=== PATIENT | female | born 1935 | race Caucasian/White ===

== ENCOUNTER 2016-10-01 10:08 | Observation (INO) | payer MEDICARE ==
[2016-10-01] VITALS (9 sets, daily range): BP systolic 110–149; BP diastolic 59–82; PULSE 64–82; RESP 14–20; O2SAT 95–99
[~2016-10-01] VITALS: Ht 167.6 cm; Wt 109.6 kg
[~2016-10-01 10:08] MED LIST: AMLO5TAB2 PO; CHOL10008 PO; FURO-128 PO; KRIL1CAP PO; MAGN400T4 PO; NAPR220C16 PO; NITR0.4T SL; POTA20TA16 PO; SOTA80TA PO; TRIA10.8 NS; VIT1CAPS8 PO; WARF5TAB7 PO
[2016-10-01 10:37] LABS: BASOPHILS % (AUTO) 0.5 % (0-3); EOSINOPHILS % (AUTO) 3.8 % (0-5); MONOCYTES % (AUTO) 10.4 % (4-12); Mean Corpuscular Hemoglobin 28.7 pg (27.0-35.0); Mean Corpuscular Volume 85.7 fL (81-100); NEUTROPHILS % (AUTO) 67.6 % (40-74); Platelet Count 240 bil/L (150-400)
--- NOTE | 2016-10-01 11:06 | ED.REPORT ---
HPI-Chest Pain 40 and Over Date of Service Oct 01, 2016 ED Provider: Veto Saini MD Patient is an 81 year old female on Warfarin with a history of atrial fibrillation who presents to the ED via EMS complaining of chest pain that radiated to her neck and jaw. She describes her pain as a 7/10 that felt like "really bad indigestion". She was given Nitro en route by EMS. Her pain is mostly resolved upon examination. Associated symptoms include some SOB when she got up to use the restroom. She denies diaphoresis, nausea, or any other symptoms. Her last stress test was about 2 years ago. Nursing Notes Stated Complaint: CP Chief Complaint: Chest Pain Nursing Notes Reviewed: Yes (App [employer] not reconciled) Allergies: Coded Allergies: Cephalosporins (Verified Allergy, Severe, 10/01/16) Penicillins (Verified Allergy, Severe, 10/01/16) oxycodone (Verified Allergy, Severe, 10/01/16) Patient states oxycodone affects Afib rate. TAPE (Unverified Allergy, Mild, Rash, 10/01/16) rash, blisters latex (Verified Allergy, Unknown, 10/01/16) Scheduled ([PGX soluable fiber]) 1 TBS PO DAILY Jgnhe-J-Ihgoscbrkktju (Beano) 300 Unit Tab.rapdis 2 TABLET PO DAILYWD Amlodipine (Amlodipine) 5 Mg Tablet 5 MG PO HS Cholecalciferol (Vitamin D3) (Vitamin D3) 2,000 Unit Capsule 4,000 UNIT PO DAILY Furosemide (Lasix) 40 Mg Tablet 20 MG PO DAILY Krill/Om3/Dha/Epa/Om6/Lip/Astx (Krill Oil 1,000 mg Softgel) 1 Each Capsule 1 EACH PO DAILY Magnesium Oxide (Magnesium Oxide) 400 Mg Tablet 400 MG PO DAILY Multivitamin (Multi Vitamin Daily) 1 Each Tablet 1 EACH PO DAILY Omeprazole (Omeprazole) 20 Mg Tablet.dr 20 MG PO DAILY Potassium Chloride ER (Potassium Chloride ER) 10 Meq Tablet 10 MEQ PO DAILY TAKE WITH FOOD Sotalol HCl (Sotalol) 80 Mg Tablet 80 MG PO BID Vit C/Vit E/Lutein/Min/[place]-3 (Ocuvite Softgel) 1 Each Capsule 1 EACH PO DAILY Warfarin Sodium (Warfarin Sodium) 5 Mg Tablet 5 MG PO DIRECTED take 1 tab daily except for Friday Warfarin Sodium (Warfarin Sodium) 5 Mg Tablet 2.5 MG PO DIRECTED take 1/2 tab on Friday only Scheduled PRN Calcium Carbonate (Tums) 500 Mg Tab.chew 2 TABLET PO PRN PRN PRN For Dyspepsia or Heartburn Naproxen Sodium (Naproxen Sodium) 220 Mg Capsule 220 MG PO BID PRN PRN For Pain Nitroglycerin SL (Nitrostat) 0.4 Mg Tab.subl 0.4 MG SL Q5MIN PRN PRN For Chest Pain Triamcinolone Acetonide (Nasacort) 10.8 Ml [place] 10.8 ML NS PRN sinus congestion General Time Seen by MD: 11:00 Chief Complaint Chest pain Hx Obtained From: Patient Arrived By: Ambulance Sudden in Onset?: Yes Onset Occurred: 1 - 4 hours ago Past Medical History Past Medical History Hypothyroid Arthritis Breast CA T1b, N0, M0 infiltrating ductal carcinoma with no indication for chemotherapy followed by Dr. Goodwin Borderline diabetes one chart, no diabetes. Reports: Cancer (L breast ), GERD, Hypertension Reports: Atrial fibrillation, Atrial flutter, Diverticulitis Past Surgical History Bladder sling closure fem AV fistula Cardica Ablation x3, last in 08/2015 Mastectomy for breast CA March 2016 Reports: Appendectomy, Hysterectomy, Tonsillectomy Smoking History Former Smoker Social History Alcohol Use: Denies alcohol use Drug Use: Denies drug use Other Social History: Good social support Review of Systems Respiratory: Reports: Shortness of breath Cardiovascular: Reports: Chest pain GI: Denies: Nausea Musculoskeletal: Reports: Neck pain Skin: Denies Diaphoresis Complete sys rev & neg: except as marked. Physical Exam Initial Vital Signs Vital Signs (First) Date Time Temp Pulse Resp B/P Pulse Ox O2 Delivery O2 Flow Rate FiO2 10/01/16 10:17 36.8 71 16 149/81 96 Room Air 10/01/16 12:10 2 Initial VS: Reviewed, Vital signs normal Head / Eyes: Atraumatic, Normocephalic Neck: Full range of motion Skin: Warm, Dry Neurologic: Alert, Oriented, Nonfocal Psychiatric: Mood/affect normal, Behavior normal, Normal thought content General/Constitutional: Awake, Alert, Well appearing, Well developed Respiratory / Chest: No respiratory distress Cardiovascular: Heart rate NL, Regular rhythm, Heart sounds NL Abdomen: Atraumatic, Soft, Non-tender Interpretation & Diagnostics Lab Results Interpretation Result Diagram: 10/01/16 1032 10/01/16 1032 Test 10/01/16 10:32 10/01/16 14:43 White Blood Count 7.4th/mm3 (3.8-10.1) Red Blood Count 5.05mil/mm3 (3.90-5.20) Hemoglobin 14.5g/dL (12.0-15.6) Hematocrit 43.3% (35.0-46.0) Mean Corpuscular Volume 85.7fL (81-100) Mean Corpuscular Hemoglobin 28.7pg (27.0-35.0) Mean Corpuscular Hemoglobin Concent 33.5% (32.0-37.0) Red Cell Distribution Width 14.5% (12.3-15.4) Platelet Count 240bil/L (150-400) Neutrophils (%) (Auto) 67.6% (40-74) Lymphocytes (%) (Auto) 17.4% (14-46) Monocytes (%) (Auto) 10.4% (4-12) Eosinophils (%) (Auto) 3.8% (0-5) Basophils (%) (Auto) 0.5% (0-3) Prothrombin Time 25.5sec (8.1-12.5) Prothromb Time International Ratio 2.34ratio Sodium Level 139mEq/L (134-144) Potassium Level 3.9mEq/L (3.5-5.2) Chloride Level 98mEq/L (97-108) Carbon Dioxide Level 28mmol/L (18-29) Blood Urea Nitrogen 28mg/dL (8-27) Creatinine 0.69mg/dL (0.57-1.00) Estimat Glomerular Filtration Rate 117mL/min (>59) Glucose Level 103mg/dL (60-99) Calcium Level 9.4mg/dL (8.5-10.1) Magnesium Level 2.2mg/dL (1.6-2.6) Total Bilirubin 0.4mg/dL (0.0-1.2) Aspartate Amino Transf (AST/SGOT) 25U/L (0-50) Alanine Aminotransferase (ALT/SGPT) 24U/L (0-32) Alkaline Phosphatase 68U/L (25-165) Troponin T < 0.010ug/L (0.0-0.011) Total Protein 7.8g/dL (6.4-8.4) Albumin 4.5g/dL (3.4-5.0) Lab Results Interpretation: CBC normal CMP normal Troponin #1 negative INR therapeutic ECG Interpretation ECG Interpretation: Sinus rhythm rate 66 Time: 10:26 Interpreted by: ED physician X-Ray Chest Interpretation Chest Xray Interpretation: IMPRESSION: Tracheal deviation rightward due to a previously documented large left thyroid mass. No change lead time. Dictated by: Roderick Jara M.D. on 10/01/2016 at 11:11 Approved by: Roderick Jara M.D. on 10/01/2016 at 11:11 View: Portable, 1 view Interpretation / Wet Read by: Interpret - Radiologist Re-Eval/Medical Decision Med Decision/Clinical Course This is an 81-year-old female without known coronary artery disease-last stress test in 2009-oh with multiple risk factors, has chronic problems with atrial fibrillation and status post multiple ablations, has chronic pain chronic warfarin comes by 911 for an episode of chest discomfort. She reports she had an episode which kind characterizes really severe indigestion-but is different than her usual GERD, it radiated up into her neck/jaw was very severe. It really got her attention and called 911. EMS gave one nitroglycerin and nearly completely resolved the difference (down from a 7 to 0-1). No shortness of breath, no clear exertional component. She has a normal physical exam and appears well. No pleuritic discomfort. She was recently treated and is in remission for breast CA. She is not on chemotherapy. She has no prior history of DVT or PE. The patient did receive aspirin prior to arrival turns out. She had intermittent nitro paste applied. After a second nitroglycerin completely resolved the discomfort. INR is therapeutic. Her started on is negative. Patient is enough risk factors and features with multiple hours of chest discomfort of a high risk character that observation admission for serial enzymes as warranted. Usually slightly concerned about being admitted observation status, but discussed over matters with the FAMILY DEVELOPMENT EXTENSION SPECIALIST, and ultimately agreed to observation admission. Source of Hx: Old records Time of Eval: 12:11 Patient Status: Pain resolved Re-Evaluation/Progress Note: Recheck. Discussed desire for admission. Patient would like to talk to a social services manager prior to making a decision. Time of Eval: 13:25 Re-Evaluation/Progress Note: Patient agreed to admission. Time of Eval: 13:32 Re-Evaluation/Progress Note: Updated on plan for admission. Patient understands and agrees with plan. All questions addressed at this time. Consultation : Referral / Consult Name: Freddy Barraza MD Consulted With: Hospitalist Call Returned at: 14:01 Supervisor Metal Furniture Fabrication: Will see patient, Agrees with eval, Agrees with plan, Accepts admit Note: Discussed patient's case. Accepts admit. Differential Diagnosis: Positive: Chest pain, acute, Negative: Dysrhythmia, Gun shot wound chest, Pericarditis, Pneumothorax, Pulmonary edema, Pulmonary embolism Counseled Regarding: Diagnosis, Lab results, Need for admission Discharge & Departure Primary Impression: Chest pain Chest pain type: unspecified Qualified Code: R07.9 - Chest pain, unspecified Additional Impression: Anticoagulated on warfarin Disposition: ADMITTED TO HOSPITAL Referrals: Doug Oh MD (PCP) Scribe Attestation Portions of this note were transcribed by Pako Moreno. I, Dr. Saini personally performed the history, physical exam and medical decision-making; I reviewed and confirmed the accuracy of the information in the transcribed note. Signed by: Pako Moreno 10/01/16, 1410 copies to: Doug Oh MD, Matthew F MD Oct 01, 2016 11:06 PAKO MORENO Oct 01, 2016 11:30
[2016-10-01 11:11] LABS: Magnesium 2.2 mg/dL (1.6-2.6)
--- NOTE | 2016-10-01 11:13 | DRSVH ---
PROCEDURE: X-RAY CHEST ONE VIEW, PORTABLE ([id number]) INDICATIONS: chest pain TECHNIQUE: One view of the chest was acquired. COMPARISON: [facility], CR, XR CHEST 2VW, 09/09/2015, 7:54. [facility], US, US THYROI D, 02/27/2016, 9:56. [facility], CR, XR CHEST 2VW, 09/10/2015, 7:44. FINDINGS: Surgical changes and devices: None. Lungs and pleura: No pleural effusions or pneumothorax. Lungs are clear. Mediastinum: Mediastinal contours appear normal except for tracheal shift from left to right associa eneida with a previously documented large left thyroid mass(please refer to thyroid ultrasound 02/27/16). Heart size is normal. Bones and chest wall: No suspicious bony lesions. Overlying soft tissues appear unremarkable. IMPRESSION: Tracheal deviation rightward due to a previously documented large left thyroid mass. No exchange trouble shooter time. Dictated by: Roderick Jara M.D. on 10/01/2016 at 11:11 Approved by: Roderick Jara M.D. on 10/01/2016 at 11:11
[2016-10-01 11:16] LABS: TROPONIN T < 0.010 ug/L (0.0-0.011)
[2016-10-01 11:25] LABS: INR 2.34 ratio
[2016-10-01] MEDS ORDERED: MULT-1018 PO (11:46)
[2016-10-01] MEDS ORDERED: OMEP20TA86 PO (11:46)
[2016-10-01] MEDS ORDERED: [UNRECOGNIZED DRUG - OTHER] PO (11:46)
[2016-10-01] MEDS ORDERED: POTA10TA12 PO (11:46)
[2016-10-01] MEDS ORDERED: CHOL200047 PO (11:46)
[2016-10-01] MEDS ORDERED: CALC500T9 PO (11:46)
[2016-10-01] MEDS ORDERED: ALPH300T2 PO (11:46)
[2016-10-01] MEDS ORDERED: WARF5TAB7 PO (11:46)
[2016-10-01] MEDS ORDERED: Nitroglycerin 2% 1 Gm Ointment TOPICAL SCH (13:25)
[2016-10-01] MEDS ORDERED: Ondansetron 2 mg/mL 2 mL Inj IVPUSH PRN (14:25)
[2016-10-01] MEDS ORDERED: Polyethylene Glycol (PEG) 17 Gm Powder PO PRN (14:25)
[2016-10-01] MEDS ORDERED: SIME80TA53 PO (16:52)
[2016-10-01] MEDS ORDERED: KRIL1CAP12 PO (16:52)
[2016-10-01] MEDS ORDERED: TRIA10.8 NS (16:52)
[2016-10-01] MEDS ORDERED: VIT1CAPS8 PO (16:52)
--- NOTE | 2016-10-01 17:55 | PCM.HPMED ---
Subjective Date of Service Oct 01, 2016 Primary Provider: Admitting Physician: Freddy Barraza MD Primary Care Physician: Doug Oh MD Attending Physician: Freddy Barraza MD Admit Status: From the Emergency Department, 23-Hour Observation, Remote Telemetry Chief Complaint: Chest pain, this morning. Limited and resolved. History of Present Illness: This is an 81-year-old female who had chest pain this morning after exercising and eating breakfast. The pain happened at rest. This is a fullness in her epigastric region which then radiated all at the anterior chest to her neck. Some associated dyspnea but no nausea vomiting or diaphoresis. Some deaths peptic symptoms. This did not help. She has no history of CAD but does have PAF. She had a stress test 6 years ago said to be normal. Her regular doctor is Dr. Oh. No recent history of exertional chest pain or dyspnea on exertion. No recent rhinorrhea cough sore throat fevers or chills. No myalgias or arthralgias. She denies any left or right leg unilateral swelling. She has had chronic lower edema which likely relates to her amlodipine. No orthopnea. Nothing made this pain worse. She was given nitroglycerin which appeared to improve the pain. In the ED chest x-ray, EKG, and her partner were normal. Review of Systems: She denies headache visual changes or hearing loss. No recent diarrhea abdominal pain and blood per rectum hematuria or dysuria. She has had chronic arthritis. Also reviewed and otherwise negative except as noted in history of present illness. Allergies Coded Allergies: Cephalosporins (Verified Allergy, Severe, 10/01/16) Penicillins (Verified Allergy, Severe, 10/01/16) oxycodone (Verified Allergy, Severe, 10/01/16) Patient states oxycodone affects Afib rate. TAPE (Unverified Allergy, Mild, Rash, 10/01/16) rash, blisters latex (Verified Allergy, Unknown, 10/01/16) Home Medications [PGX soluable fiber]) 1 TBS PO DAILY Yccha-R-Cmocrgayhfpov (Beano) 300 Unit Tab.rapdis 2 TABLET PO DAILYWD Amlodipine (Amlodipine) 5 Mg Tablet 5 MG PO HS Cholecalciferol (Vitamin D3) (Vitamin D3) 2,000 Unit Capsule 4,000 UNIT PO DAILY Furosemide (Lasix) 40 Mg Tablet 20 MG PO DAILY Krill/Om3/Dha/Epa/Om6/Lip/Astx (Krill Oil 1,000 mg Softgel) 1 Each Capsule 1 EACH PO DAILY Magnesium Oxide (Magnesium Oxide) 400 Mg Tablet 400 MG PO DAILY Multivitamin (Multi Vitamin Daily) 1 Each Tablet 1 EACH PO DAILY Omeprazole (Omeprazole) 20 Mg Tablet.dr 20 MG PO DAILY Potassium Chloride ER (Potassium Chloride ER) 10 Meq Tablet 10 MEQ PO DAILY TAKE WITH FOOD Sotalol HCl (Sotalol) 80 Mg Tablet 80 MG PO BID Vit C/Vit E/Lutein/Min/[place]-3 (Ocuvite Softgel) 1 Each Capsule 1 EACH PO DAILY Warfarin Sodium (Warfarin Sodium) 5 Mg Tablet 5 MG PO DIRECTED take 1 tab daily except for Friday Warfarin Sodium (Warfarin Sodium) 5 Mg Tablet 2.5 MG PO DIRECTED take 1/2 tab on Friday only Scheduled PRN Calcium Carbonate (Tums) 500 Mg Tab.chew 2 TABLET PO PRN PRN PRN For Dyspepsia or Heartburn Naproxen Sodium (Naproxen Sodium) 220 Mg Capsule 220 MG PO BID PRN PRN For Pain Nitroglycerin SL (Nitrostat) 0.4 Mg Tab.subl 0.4 MG SL Q5MIN PRN PRN For Chest Pain Triamcinolone Acetonide (Nasacort) 10.8 Ml [place] 10.8 ML NS PRN sinus congestion PMH Hypothyroid Arthritis Breast CA T1b, N0, M0 infiltrating ductal carcinoma with no indication for chemotherapy followed by Dr. Goodwin Borderline diabetes one chart, no diabetes. Reports: Cancer (L breast ), GERD, Hypertension Reports: Atrial fibrillation, Atrial flutter, Diverticulitis Surgical History Bladder sling closure fem AV fistula Cardica Ablation x3, last in 08/2015 Mastectomy for breast CA March 2016 Reports: Appendectomy, Hysterectomy, Tonsillectomy Family History Negative for CAD Social History Occupation: retired Hx Alcohol Use: No Hx Substance Use: No Hx Tobacco Use: Yes Smoking Status: Former Smoker Living Arrangement: Alone Exam Vital Signs Vital Sign - Last Date Time Temp Pulse Resp B/P Pulse Ox O2 Delivery O2 Flow Rate FiO2 10/01/16 16:36 72 10/01/16 16:20 36.8 20 116/82 96 Room Air 10/01/16 13:10 2 Exam Oriented 3, no distress. Fluent speech Normal skull Normal nose and ears Anicteric sclerae, symmetric pupils. Oropharynx no droop otherwise unremarkable unremarkable Neck supple, normal thyroid, no adenopathy. Lungs are clear, normal effort and rate Heart is irregular without murmur. Abdomen soft nondistended. Extremities no 1+ edema bilaterally with good pedal and radial pulses. Skin free of rash, lesions or ecchymosis Normal strength Normal affect. Joints not swollen or deformed. Lab and Diagnostics Labs neg trop Result Diagram: 10/01/16 1032 10/01/16 1032 X-Rays, CTs and MRIs Neg CXR 12-lead ECG ECG normal Assessment & Plan 1. Chest pain, transient. Improved with nitroglycerin. Prior to arrival. Plan is serial troponins and a pharmacologic may be stress test tomorrow. 2. Paroxysmal atrial fibrillation, POA. She is in A. fib now. He is right controlled. We will add metoprolol 12.5 by mouth twice a day when necessary tachycardia. No other changes to medications. 3. Hypertension, essential. POA. Usual medications. Patient is full resuscitation, confirmed tonight. She is admitted observation status with an estimated length of stay of one night. Pain Evaluation: Adequate Pain Control Resuscitation Status: CPR: Attempt Resuscitation Time spent 35 minutes Freddy Barraza MD Oct 01, 2016 17:55
--- NOTE | 2016-10-01 20:15 | NUR ---
admit patient received to room 246-2 at 1550. patient oriented to room and call light and states understanding. scd's placed. tele placed and patient in afib in the 60's per telecom coordinator report. Dr. Gomez here and notified that patient ekg in the ED was sinus rhythm and patient now in afib. additionally clarified order for nitro paste from ED and Dr. Barraza ordered not to give nitro paste order for ED. patient denies chest pain all shift. to be npo after midnight. blood pressure being done on right arm only. report given to oncoming rn at 1900.
[2016-10-01] MEDS ORDERED: Nitroglycerin 2% 1 Gm Ointment TOPICAL ONE (21:55)
[2016-10-02] VITALS (7 sets, daily range): BP systolic 129–158; BP diastolic 69–81; PULSE 63–90; RESP 16–20; O2SAT 94–96
--- NOTE | 2016-10-02 06:30 | NUR ---
Activity Pt did not have any chest pain or SOB during shift.
[2016-10-02] MEDS: Pantoprazole 40 mg ER24 Tablet PO SCH (09:12)
--- NOTE | 2016-10-02 10:30 | NUR ---
Case management: OBS brochure and Drugs administered in Hosp OP Settings information given and explained to patient at bedside at 1015. Questions answered. ADAM Babb RN
--- NOTE | 2016-10-02 11:56 | NUR ---
Social Work: Initial Assessment / Readiness for d/c Data: Pt is an 81 y/o female admitted for CP R/O ACS. Pt's PCP is Dr Oh, pt's insurance is Medicare with [employer]. EMR reviewed, pt discussed in rounds. MD states pt likely to d/c home today after stress test this afternoon pending the stress test results. COSMETICS SUPERVISOR spoke with pt at bedside, role explained. Pt states that she lives alone in a home with 2 steps to enter. She uses no DME. Pt staes that she drives, has history with [facility], no SNF history, no LTC or VA benefits, and is not a caregiver for another. Pt states that her daughter plans to pick her up today if needed or at a later time. No further d/c planning needs anticipated at this time. COSMETICS SUPERVISOR will continue to follow if needs arise. Assessment: Pt who is independent at baseline. Plan: Pt will d/c home via POV with daughter when medically stable, likely today. No further d/c planning needs anticipated at this time. COSMETICS SUPERVISOR will continue to follow if needs arise. MAHNAZ East Addendum: 10/02/16 at 1159 by BISMARK CHAPPELL Amended: Links added.
--- NOTE | 2016-10-02 16:46 | NUR ---
Off Floor Patient off floor to stress test at 1540 via wheelchair. Tele removed, telegraph repeater technician notified. Addendum: 10/02/16 at 1728 by DARWIN HUNT RN pt returned to floor at 1710. tele placed and ekg monitor tech notified.
--- NOTE | 2016-10-02 17:16 | PCM.PNMED ---
Subjective Date of Service Oct 02, 2016 Subjective Patient seen and examined, patients chest pain has diminished incredibly throughout the entire night. Patient is completely asympomatic at the current time. currently awaiting the results of the stress test. Exam Vital Signs Vital Sign - Last Date Time Temp Pulse Resp B/P Pulse Ox O2 Delivery O2 Flow Rate FiO2 10/02/16 13:06 36.7 69 17 144/69 95 Room Air 10/01/16 13:10 2 Exam General: Generally well appearing HEENT: sclerae anicteric, oral mucosa moist Neck: no apparent JVD Chest: clear to auscultation Cardiac: S1S2, no murmur Abdomen: BS active, non-tender, not bloated or tympanitic Extremities: No edema Neuro: A&O, cranial nerves symmetric, motor strength and coordination normal Lab and Diagnostics Result Diagram: 10/01/16 1032 10/01/16 1032 X-Rays, CTs and MRIs Neg CXR 12-lead ECG ECG normal Assessment & Plan 1. Chest pain, transient. Improved with nitroglycerin. Prior to arrival. - troponins have been negative will stop serial drawa - pt has gone to the stress test, will follow up on results 2. Paroxysmal atrial fibrillation, POA. She is in A. fib now. He is right controlled. We will add metoprolol 12.5 by mouth twice a day when necessary tachycardia. No other changes to medications. - pt currently still in atrial fibrillation - pt currently rate controlled and will go ahead with current regimen 3. Hypertension, essential. POA. Usual medications. Patient is full resuscitation, confirmed tonight. She is admitted observation status with an estimated length of stay of one night. VTE Mechanical Devices: Intermittant Pneumatic CD Resuscitation Status: CPR: Attempt Resuscitation Hernesto Morel MD Oct 02, 2016 17:16
[2016-10-03 04:10] VITALS: BP 125/74; PULSE 60; RESP 18; O2SAT 94
[2016-10-03 04:33] VITALS: PULSE 58
--- NOTE | 2016-10-03 05:53 | NUR ---
Pain / Tele Pt c/o right arm pain r/t several failed IV starts for Stress test yesterday, rating it 4/10. Right arm elevated on pillow, and hot packs applied, and pain resolved with no further c/o pain. Pt compliant with NPO status for scheduled Stress test procedure this AM . No c/o chest pain, Tele Afib with occ PVCs, HR 60-90s. VS stable and afebrile. Addendum: 10/03/16 at 0641 by CHANO LAMB RN Pt converted to Tele SB-SR around 0639 this AM with HR in the 50-60's per Associate Research Scientist.
[2016-10-03 07:54] VITALS: PULSE 73
[2016-10-03] MEDS: Pantoprazole 40 mg ER24 Tablet PO SCH (08:22)
[2016-10-03 08:55] VITALS: BP 134/83; PULSE 70; RESP 18; O2SAT 96
--- NOTE | 2016-10-03 10:30 | NUR ---
Stress test Day 2 patient is alert and oriented X3. able to make needs known. denies pain or discomfort. patient went for stress test day 2 this AM. stable vital signs. received all PO medications with out difficulty. independent with transfers. IV saline locked. continue to monitor.
[2016-10-03 12:33] VITALS: BP 128/80; PULSE 66; RESP 18; O2SAT 97
--- NOTE | 2016-10-03 12:57 | DRSVH ---
PROCEDURE: 2 DAY STRESS TEST Rest and pharmacological stress myocardial perfusion SPECT with gated imaging and ejection fraction RADIOPHARMACEUTICAL: 22.7 mCi Tc-99m tetrafosmin IV at rest and 21.9 mCi Tc-99m tetrafosmin IV at pea k effect of pharmacological stress. [id number] was performed. INDICATIONS: CHEST PAIN. TECHNIQUE: Radiopharmaceutical was injected at peak stress test, and also at rest. SPECT images wer e obtained. SPECT myocardial perfusion images were displayed in short axis, horizontal long axis, an d vertical long axis views. Gated images were reviewed using [employer] software. COMPARISON: None. CARDIAC STRESS: A pharmacologic stress test was performed under the supervision of an attending staff, using an infus ion of Regadenoson. Hemodynamic data: There is normal blood pressure and heart rate response to pharmacologic stress. Symptoms: The patient denied anginal chest pain. Aminophylline: 100 mg IV EKG: No diagnostic changes of ischemia; no ectopy. FINDINGS: Raw data: There is good myocardial uptake of radiotracer. No significant motion artifacts. Left ventricle function: Gated images demonstrate normal left ventricular wall thickening. No segme ntal wall motion abnormalities during rest. Left ventricle resting end diastolic volume is 59 mL. L eft ventricle rest ejection fraction is 82%; normal range is above 45%. Myocardial perfusion: There is a large perfusion defect noted on both stress and rest images. Howeve r on prone imaging the perfusion defect improves dramatically. IMPRESSION: This is most likely a normal myocardial perfusion study. The inferior perfusion defect is consistent with diaphragmatic attenuation artifact. Rest ejection fraction is normal. Overall this i s considered to be a low risk study. Dictated by: Kody Quinn Jr., M.D. on 10/03/2016 at 12:54 Approved by: Kody Quinn Jr., M.D. on 10/03/2016 at 12:54
--- NOTE | 2016-10-03 14:36 | PCM.DIMED ---
Discharge Instructions Date of Service Oct 03, 2016 Dates of Hospitalization Oct 01, 2016 at 15:25 Discharge Diagnosis Discharge Diagnosis take medications as prescribed follow up with your primary care doctor as needed Medication Instructions none Test Results [id number] Patient Name: MARILYN POWELL MR#: [id number] Location: [facility] [place] Ordering Phys: ASHANTI ASHBY MD Date of Service: 10/01/16 1028 PROCEDURE: X-RAY CHEST ONE VIEW, PORTABLE ([id number]) INDICATIONS: chest pain TECHNIQUE: One view of the chest was acquired. COMPARISON: [facility], CR, XR CHEST 2VW, 09/09/2015, 7:54. Outside Film, US, US THYROID, 02/27/2016, 9:56. [facility], CR, XR CHEST 2VW, 09/10/2015, 7:44. FINDINGS: Surgical changes and devices: None. Lungs and pleura: No pleural effusions or pneumothorax. Lungs are clear. Mediastinum: Mediastinal contours appear normal except for tracheal shift from left to right associated with a previously documented large left thyroid mass( please refer to thyroid ultrasound 02/27/16). Heart size is normal. Bones and chest wall: No suspicious bony lesions. Overlying soft tissues appear unremarkable. IMPRESSION: Tracheal deviation rightward due to a previously documented large left thyroid mass. [place] [address] Patient Name: MARILYN POWELL MR#: [id number] Location: [facility] [place] Ordering Phys: Hernesto Morel MD Date of Service: 10/02/16 0917 PROCEDURE: 2 DAY STRESS TEST Rest and pharmacological stress myocardial perfusion SPECT with gated imaging and ejection fraction RADIOPHARMACEUTICAL: 22.7 mCi Tc-99m tetrafosmin IV at rest and 21.9 mCi Tc-99m tetrafosmin IV at peak effect of pharmacological stress. Ibe-cip-skhxxhfj was performed. INDICATIONS: CHEST PAIN. TECHNIQUE: Radiopharmaceutical was injected at peak stress test, and also at rest. SPECT images were obtained. SPECT myocardial perfusion images were displayed in short axis, horizontal long axis, and vertical long axis views. Gated images were reviewed using AutoQUANT software. COMPARISON: None. CARDIAC STRESS: A pharmacologic stress test was performed under the supervision of an attending staff, using an infusion of Regadenoson. Hemodynamic data: There is normal blood pressure and heart rate response to pharmacologic stress. Symptoms: The patient denied anginal chest pain. Aminophylline: 100 mg IV EKG: No diagnostic changes of ischemia; no ectopy. FINDINGS: Raw data: There is good myocardial uptake of radiotracer. No significant motion artifacts. Left ventricle function: Gated images demonstrate normal left ventricular wall thickening. No segmental wall motion abnormalities during rest. Left ventricle resting end diastolic volume is 59 mL. Left ventricle rest ejection fraction is 82%; normal range is above 45%. Myocardial perfusion: There is a large perfusion defect noted on both stress and rest images. However on prone imaging the perfusion defect improves dramatically. IMPRESSION: This is most likely a normal myocardial perfusion study. The inferior perfusion defect is consistent with diaphragmatic attenuation artifact. Rest ejection fraction is normal. Overall this is considered to be a low risk study. Diet Low fat, Low Sodium Activity No restrictions Call your provider Fever or Chills, Shortness of breath, Chest pain Patient Instructions take medications as prescribed follow up with your pmd at your next scheduled visit Follow-up with PCP in: Other (as needed ) Hernesto Morel MD Oct 03, 2016 14:36
--- NOTE | 2016-10-03 15:32 | NUR ---
Discharge Patient discharged home approx 1324 with family and accompanied with nursing staff via wheel chair. patient is alert and oriented X3. Denied pain or discomfort. Denies chest pain or chest discomfort. Reviewed discharge instructions, discharge medications, and provided written care noted to patient and understood discharge paper work. Discontinued IV to left arm.
--- NOTE | 2016-10-22 14:26 | PCM.DC.MED ---
Discharge Summary Date of Service Oct 22, 2016 Dates of Hospitalization Date of Hospital Admission Oct 01, 2016 at 15:25 Date of Discharge: Oct 02, 2016 Providers: Admitting Physician: Freddy Barraza MD Primary Care Physician: Doug Oh MD Attending Physician: Freddy Barraza MD Diagnosis at Time of Discharge Diagnosis at Time of Discharge take medications as prescribed follow up with your primary care doctor as needed Procedures XRay, CTs & MRIs Neg CXR ECG 12 Lead ECG normal Other Diagnostics Patient Name: MARILYN POWELL MR#: [id number] Location: [facility] [place] Ordering Phys: Hernesto Morel MD Date of Service: 10/02/16 0917 PROCEDURE: 2 DAY STRESS TEST Rest and pharmacological stress myocardial perfusion SPECT with gated imaging and ejection fraction RADIOPHARMACEUTICAL: 22.7 mCi Tc-99m tetrafosmin IV at rest and 21.9 mCi Tc-99m tetrafosmin IV at peak effect of pharmacological stress. Qgt-mob-gnwmbglp was performed. INDICATIONS: CHEST PAIN. TECHNIQUE: Radiopharmaceutical was injected at peak stress test, and also at rest. SPECT images were obtained. SPECT myocardial perfusion images were displayed in short axis, horizontal long axis, and vertical long axis views. Gated images were reviewed using NetadminQUANT software. COMPARISON: None. CARDIAC STRESS: A pharmacologic stress test was performed under the supervision of an attending staff, using an infusion of Regadenoson. Hemodynamic data: There is normal blood pressure and heart rate response to pharmacologic stress. Symptoms: The patient denied anginal chest pain. Aminophylline: 100 mg IV EKG: No diagnostic changes of ischemia; no ectopy. FINDINGS: Raw data: There is good myocardial uptake of radiotracer. No significant motion artifacts. Left ventricle function: Gated images demonstrate normal left ventricular wall thickening. No segmental wall motion abnormalities during rest. Left ventricle resting end diastolic volume is 59 mL. Left ventricle rest ejection fraction is 82%; normal range is above 45%. Myocardial perfusion: There is a large perfusion defect noted on both stress and rest images. However on prone imaging the perfusion defect improves dramatically. IMPRESSION: This is most likely a normal myocardial perfusion study. The inferior perfusion defect is consistent with diaphragmatic attenuation artifact. Rest ejection fraction is normal. Overall this is considered to be a low risk study. Brief History This is an 81-year-old female who had chest pain this morning after exercising and eating breakfast. The pain happened at rest. This is a fullness in her epigastric region which then radiated all at the anterior chest to her neck. Some associated dyspnea but no nausea vomiting or diaphoresis. Some deaths peptic symptoms. This did not help. She has no history of CAD but does have PAF. She had a stress test 6 years ago said to be normal. Her regular doctor is Dr. Oh. No recent history of exertional chest pain or dyspnea on exertion. No recent rhinorrhea cough sore throat fevers or chills. No myalgias or arthralgias. She denies any left or right leg unilateral swelling. She has had chronic lower edema which likely relates to her amlodipine. No orthopnea. Nothing made this pain worse. She was given nitroglycerin which appeared to improve the pain. In the ED chest x-ray, EKG, and her partner were normal. Hospital Course 1. Chest pain, transient. Improved with nitroglycerin. Prior to arrival. - troponins have been negative will stop serial drawa - pt had stress test which did not reveal any perfusion defect 2. Paroxysmal atrial fibrillation, POA. She is in A. fib now. He is right controlled. We will add metoprolol 12.5 by mouth twice a day when necessary tachycardia. No other changes to medications. - pt currently still in atrial fibrillation - pt currently rate controlled and will go ahead with current regimen 3. Hypertension, essential. POA. Usual medications. Patient is full resuscitation Pt will be discharged to home, she will follow up with her pmd within two weeks Pt will take medications as described in discharge instructions Exam Test 10/01/16 10:32 10/01/16 14:43 10/01/16 19:40 White Blood Count 7.4th/mm3 (3.8-10.1) Red Blood Count 5.05mil/mm3 (3.90-5.20) Hemoglobin 14.5g/dL (12.0-15.6) Hematocrit 43.3% (35.0-46.0) Mean Corpuscular Volume 85.7fL (81-100) Mean Corpuscular Hemoglobin 28.7pg (27.0-35.0) Mean Corpuscular Hemoglobin Concent 33.5% (32.0-37.0) Red Cell Distribution Width 14.5% (12.3-15.4) Platelet Count 240bil/L (150-400) Neutrophils (%) (Auto) 67.6% (40-74) Lymphocytes (%) (Auto) 17.4% (14-46) Monocytes (%) (Auto) 10.4% (4-12) Eosinophils (%) (Auto) 3.8% (0-5) Basophils (%) (Auto) 0.5% (0-3) Prothrombin Time 25.5sec (8.1-12.5) Prothromb Time International Ratio 2.34ratio Sodium Level 139mEq/L (134-144) Potassium Level 3.9mEq/L (3.5-5.2) Chloride Level 98mEq/L (97-108) Carbon Dioxide Level 28mmol/L (18-29) Blood Urea Nitrogen 28mg/dL (8-27) Creatinine 0.69mg/dL (0.57-1.00) Estimat Glomerular Filtration Rate 117mL/min (>59) Glucose Level 103mg/dL (60-99) Calcium Level 9.4mg/dL (8.5-10.1) Magnesium Level 2.2mg/dL (1.6-2.6) Total Bilirubin 0.4mg/dL (0.0-1.2) Aspartate Amino Transf (AST/SGOT) 25U/L (0-50) Alanine Aminotransferase (ALT/SGPT) 24U/L (0-32) Alkaline Phosphatase 68U/L (25-165) Total Protein 7.8g/dL (6.4-8.4) Albumin 4.5g/dL (3.4-5.0) Hold Urine Received (Received) Troponin T < 0.010ug/L (0.0-0.011) Discharge Medications Discharge Medications ([PGX soluable fiber]) 1 TBS PO DAILY (Reported) Qyicl-F-Inzhizxmdfcwe (Beano) 300 Unit Tab.rapdis 2 TABLET PO DAILYWD (Reported ) Amlodipine (Amlodipine) 5 Mg Tablet 5 MG PO QAM (Reported) Cholecalciferol (Vitamin D3) (Vitamin D3) 2,000 Unit Capsule 4,000 UNIT PO QPM ( Reported) Furosemide (Lasix) 40 Mg Tablet 20 MG PO DAILY (Reported) Krill/Northridge-3/Dha/Epa/Lipids (Krill Oil 300 mg Softgel) 1 Each Capsule 1 EACH PO QPM (Reported) Magnesium Oxide (Magnesium Oxide) 400 Mg Tablet 400 MG PO QPM (Reported) Multivitamin (Multi Vitamin Daily) 1 Each Tablet 1 EACH PO DAILY (Reported) Naproxen Sodium (Naproxen Sodium) 220 Mg Capsule 220 MG PO BID (Reported) Omeprazole (Omeprazole) 20 Mg Tablet.dr 20 MG PO DAILY (Reported) Potassium Chloride ER (Potassium Chloride ER) 10 Meq Tablet 10 MEQ PO QPM ( Reported) TAKE WITH FOOD Sotalol HCl (Sotalol) 80 Mg Tablet 80 MG PO BID (Reported) Vit C/Vit E/Lutein/Min/Northridge-3 (Ocuvite Softgel) 1 Each Capsule 1 EACH PO QPM ( Reported) Warfarin Sodium (Warfarin Sodium) 5 Mg Tablet 5 MG PO ,,,Fr,Sa,[place]andall ( Reported) Warfarin Sodium (Warfarin Sodium) 5 Mg Tablet 2.5 MG PO every Friday (Reported) take 1/2 tab on Friday only As needed Calcium Carbonate (Tums) 500 Mg Tab.chew 2 TABLET PO PRN PRN PRN For Dyspepsia or Heartburn (Reported) Nitroglycerin SL (Nitrostat) 0.4 Mg Tab.subl 0.4 MG SL Q5MIN PRN PRN For Chest Pain (Reported) Simethicone (Gas-X) 80 Mg Tablet 80 MG PO DAILY PRN PRN For Indigestion ( Reported) Triamcinolone Acetonide (Nasacort) 10.8 Ml [place] 1 SPRAY NS DAILY PRN PRN allergies (Reported) Additional med instructions none Followup Plan Discharge Diet: Low fat, Low Sodium Discharge Activity: No restrictions Patient Instructions take medications as prescribed follow up with your pmd at your next scheduled visit Follow-up with PCP in: Other (as needed ) Hernesto Morel MD Oct 22, 2016 14:26
[2016-12-23] MEDS ORDERED: AMIN236L PO (15:08)
== END 2016-10-03 15:23 | disposition home or self-care (01) ==
LOC: SED 10:08 → EDBD 10:08 → MOC 15:25
PROVIDERS: ADMIT Hospitalist; ATTEND Hospitalist
DX: R07.9 Chest pain, unspecified (principal); I48.0 Paroxysmal atrial fibrillation; I10 Essential (primary) hypertension; Z79.01 Long term (current) use of anticoagulants
CPT/HCPCS: 36415; 71010; 78452; 80053; 83735; 84484; 85025; 85610; 90791; 93005; 93017; 99285; A9502; G0378; J0280; J2785

== ENCOUNTER 2017-05-27 00:28 | Day surgery (SDC) | payer MEDICARE ==
[2017-05-27] VITALS (12 sets, daily range): BP systolic 100–141; BP diastolic 58–82; PULSE 61–66; RESP 16–18; O2SAT 93–95
[~2017-05-27] VITALS: Ht 167.6 cm; Wt 94.9 kg
[~2017-05-27 00:28] MED LIST changes: +DULO20CA18 PO; +GABA-500 PO; -KRIL1CAP PO; +KRIL1CAP12 PO; +MELO-259 PO; +METO25TA6 PO; -NAPR220C16 PO; +POTA10TA12 PO; -POTA20TA16 PO; +[UNRECOGNIZED DRUG - OTHER] PO; +[UNRECOGNIZED DRUG - OTHER] PO
[2017-05-27 09:31] LABS: BASOPHILS % (AUTO) 0.5 % (0-3); EOSINOPHILS % (AUTO) 3.4 % (0-5); MONOCYTES % (AUTO) 10.3 % (4-12); Mean Corpuscular Hemoglobin 28.6 pg (27.0-35.0); Mean Corpuscular Volume 84.5 fL (81-100); NEUTROPHILS % (AUTO) 66.5 % (40-74); Platelet Count 217 bil/L (150-400)
[2017-05-27] MEDS ORDERED: Vancomycin Inj 1,500 MG in 0.9% Sodium Chloride 500 ML IV ONE (09:38)
--- NOTE | 2017-05-27 09:46 | NUR ---
Pt admitted for pacemaker insertion with Dr Venegas.Dr Venegas called and informed that patient had a mastectomy with node removal approx 1 year ago (04/04/2016) on the left side. IV therapy nurse and patient are not comfortable with insertion of IV on left arm. Physician will proceed without IV on left arm, right arm IVs inserted by Federico IV therapy nurse.
[2017-05-27] MEDS ORDERED: OMEP20CA11 PO (10:08)
[2017-05-27 10:14] LABS: INR 2.41 ratio
[2017-05-27] MEDS ORDERED: Bupivacaine-MPF 0.5% 30 mL Inj ONE (11:10)
[2017-05-27] MEDS ORDERED: Heparin 10,000 Unit/1,000 mL NS Premix IV ONE (11:10)
[2017-05-27] MEDS ORDERED: 0.9% Sodium Chloride 250 ML ONE (11:11)
[2017-05-27] MEDS ORDERED: Vancomycin 1,000 mg Inj ONE (11:18)
[2017-05-27] MEDS ORDERED: Water for Injection 50 ML IV ONE (11:18)
[2017-05-27] MEDS ORDERED: fentaNYL-PF 50 mCg/mL 2 mL Inj ONE ×2 (11:42→12:37)
[2017-05-27] MEDS ORDERED: Ondansetron 2 mg/mL 2 mL Inj IVPUSH PRN (13:05)
--- NOTE | 2017-05-27 14:20 | OP ---
[address] [address] OPERATIVE REPORT PATIENT: MARILYN POWELL : 1935 MR#: [id number] ADMIT: 05/27/2017 JOB ID: [id number] DATE OF SURGERY: 05/27/2017 PREOPERATIVE DIAGNOSIS(ES): Sick sinus syndrome. POSTOPERATIVE DIAGNOSIS(ES): Sick sinus syndrome. PROCEDURE PERFORMED: 1. Dual-chamber pacemaker implantation. 2. Fluoroscopy. SURGEON: Braden Venegas MD, electrophysiology. WATERMELON INSPECTOR: Milena Armstrong. IMPLANTED DEVICE: 1. [employer] pulse generator, model PV7753, serial #[id number]. 2. Right atrial lead [employer] 2088 TC, 46 cm, serial #[id number]. 3. RV lead [employer] 2088 TC, 52 cm, serial number #[id number]. ANESTHESIA: Bolus dosing of Versed and fentanyl administered for an appropriate level of sedation INDICATION: The patient is a pleasant, 82-year-old woman with a structurally normal heart, paroxysmal atrial fibrillation, status post ablation now manifesting with sick sinus syndrome. After discussion of risks and benefits of pacemaker implantation, she opted to proceed. PROCEDURAL DESCRIPTION: Following informed signed consent, the patient was taken to the EP laboratory in a fasting state where she was prepped in usual sterile fashion. The left infraclavicular region was infiltrated with 40 cc of a 50/50 mixture of and lidocaine. Once adequate anesthesia had been achieved, a 3 cm transverse incision was performed 3 cm below the clavicle. Dissection was carried down to the pectoralis fascia and a pocket was then fashioned using a combination of electrocautery and blunt dissection. Once adequate hemostasis had been achieved, access to left axillary vein was obtained with micropuncture needle twice to deploy two 0.035, 3 mm J guidewires. Over the first of these, a 6-Kosovan tear-away sheath was advanced. Once the guidewire was removed, an active fixation lead was advanced to the RV outflow tract, all the way to the RV apex. The lead was affixed in position using associated fixation screw. It was connected to the external analyzer and demonstrated appropriate sensed R waves, impedance, capture. Was checked to 10 V and there was no evidence of diaphragmatic stimulation. Attention was now paid to the right atrial lead. Over the previously deployed J guidewire, another 6-Kosovan tear-away sheath was advanced. Once it is removed an active fixation lead was advanced to the right atrial appendage. It was affixed in position using associated active fixation screw. It was connected to the external analyzer and demonstrated appropriately sensed fibrillation waves, stable impedance and no diaphragmatic stimulation at 10 V of asynchronous pacing. Once the position and redundancy of both leads had been confirmed in multiple fluoroscopic views, the leads were anchored to the prepectoralis fascia using their associated anchoring sleeves copiously irrigated with antibiotic solution. The leads were connected to a generator. The floor of the pocket using 1-0 Ti-Cron suture. The incision was then closed with running layers of absorbable suture. The wound was dressed with skin adhesive and a dressing. At the end of procedure, the needle, sponge, and instrument counts were all correct. COMPLICATIONS: None. ESTIMATED BLOOD LOSS: Negligible. DEVICE MEASURED DATA: 1. Right lead 4.7 mV, fibrillation waves 540 ohms. 2. RV lead 8.6 mV, ohms, 0.5 V at 0.4 msec. FINAL PROGRAM PARAMETERS: DDD 60-130 beats per minute. IMPRESSION: Successful dual-chamber pacemaker implantation. PLAN: 1. Stat portable chest x-ray. 2. PA and lateral chest x-ray in the morning 3. IV vancomycin through tomorrow. 4. Doxycycline x7 days. 5. Wound check in one week. ATTENDING STATEMENT: Braden Venegas MD, electrophysiology attending, was present for and supervised/performed all aspects of this procedure.
[2017-05-27] MEDS: 0.9% Sodium Chloride 1,000 ML IV SCH ×2 (14:22→23:02)
--- NOTE | 2017-05-27 14:54 | DRSVH ---
PROCEDURE: X-RAY CHEST ONE VIEW, PORTABLE ([id number]) INDICATIONS: For new leads placed TECHNIQUE: One view of the chest was acquired. COMPARISON: [facility], CR, XR CHEST 1VW (PORTABLE), 10/01/2016, 10:37. FINDINGS: Surgical changes and devices: New left cardiac pacer. Stable left axillary surgical clips. Lungs and pleura: No pleural effusions or pneumothorax. Lungs are clear. Mediastinum: Mediastinal contours appear normal. Heart size is normal. Bones and chest wall: No suspicious bony lesions. Overlying soft tissues appear unremarkable. IMPRESSION: Left cardiac pacer. No pneumothorax. Dictated by: Imtiaz Bustillo M.D. on 05/27/2017 at 14:52 Approved by: Imtiaz Bustillo M.D. on 05/27/2017 at 14:53
--- NOTE | 2017-05-27 15:30 | NUR ---
TRANSFER NOTE TO [facility], REPORT GIVEN
--- NOTE | 2017-05-27 16:01 | NUR ---
To [facility] Patient report called by ARNEL REA. Patient arrived via bed to room 3003 at 1550. Telemetry applied to patient. Patient oriented to staff, call light, television, room, and visiting hours. Patient has ice on incision site. Patient family in room. Bed locked and call light within reach.
[2017-05-27] MEDS ORDERED: Fluticasone 0.05% 15 Spray/2 Gm 16 Gm Nasal Spray NASAL PRN (16:15)
[2017-05-27] MEDS: HYDROcodone-APAP 5-325 mg Tablet PO PRN ×2 (16:55→22:46)
--- NOTE | 2017-05-28 | NUR ---
discomfort patient complained of discomfort to left upper chest incision rated 3 per numeric scale. given vicodin 1 tablet with crackers. on re evaluation patient's discomfort reduced to "2" , resting quietly. also reviewed left arm precautions. verbalized understanding.
[2017-05-28 00:13] VITALS: BP 118/76; PULSE 70; O2SAT 96
[2017-05-28] MEDS ORDERED: Vancomycin Inj 1,000 MG in IV Premix 1 EACH IV ONE (01:05)
[2017-05-28] MEDS ORDERED: 0.9% Sodium Chloride 250 ML ONE (01:07)
[2017-05-28 05:18] VITALS: BP 104/68; PULSE 60; RESP 16; O2SAT 95
[2017-05-28] MEDS: HYDROcodone-APAP 5-325 mg Tablet PO PRN (06:07)
[2017-05-28] MEDS ORDERED: Pantoprazole 20 mg ER24 Tablet PO SCH (06:30)
[2017-05-28] MEDS ORDERED: Potassium Citrate ER 10 mEq ER24 Tablet PO SCH (08:30)
[2017-05-28] MEDS ORDERED: Vitamins C,E, Omega-3, Mineral Tablet PO SCH (08:30)
[2017-05-28] MEDS ORDERED: DULoxetine 20 mg DR Capsule PO SCH (08:30)
[2017-05-28] MEDS: 0.9% Sodium Chloride 1,000 ML IV SCH (09:02)
--- NOTE | 2017-05-28 09:06 | DRSVH ---
PROCEDURE: X-RAY CHEST, TWO VIEWS ([id number]) INDICATIONS: For new lead placement TECHNIQUE: 2 views of the chest were acquired. COMPARISON: [facility], CR, XR CHEST 2VW, 09/09/2015, 7:54. [facility], CR, XR CHEST 1VW (PORTABLE), 05/27/2017, 13:48. [facility], CR, XR CHEST 2VW, 09/10/2015, 7: 44. FINDINGS: Surgical changes and devices: Surgical clips in the left breast are stable. Lungs and pleura: No pleural effusions or pneumothorax. Lungs are clear. Mediastinum: Mediastinal contours are normal. Heart size is normal. Bones and chest wall: No suspicious bony abnormalities. Soft tissues appear unremarkable. IMPRESSION: No acute cardiopulmonary disease process. by: Lou Degroot MD, PhD on 05/28/2017 at 9:02 Approved by: Lou Degroot MD, PhD on 05/28/2017 at 9:04
[2017-05-28 09:13] VITALS: BP 132/70; PULSE 64; RESP 16; O2SAT 97
[2017-05-28 09:56] VITALS: PULSE 62
--- NOTE | 2017-05-28 09:59 | PCM.DIMED ---
Discharge Instructions Date of Service May 28, 2017 Dates of Hospitalization Discharge Diagnosis Discharge Diagnosis Recurrent, Paroxysmal Atrial Fibrillation Atrial Flutter Sinus Bradycardia Hypertension Diet Discharge Diet: Heart Healthy Activity Discharge Activity: Other (Keep incision dry one day. Do not extend left elbow high above shoulder for one month. Do not lift, push or pull more than 10 lbs with the left arm for one month.) Call your provider Call your provider for: Fever or Chills, Bleeding, Excessive diarrhea Patient Instructions Follow-up in: 1 week Mid-level Provider (F9): Luis Alberto Rosa PA-C Follow-up with Mid-level in: 6 weeks Luis Alberto Rosa PA-C May 28, 2017 09:59
[2017-05-28] MEDS ORDERED: HYDR-4003 PO (10:12)
[2017-05-28] MEDS ORDERED: DOXY100C2 PO (10:12)
--- NOTE | 2017-05-28 11:04 | DIS ---
[address] [address] DISCHARGE SUMMARY PATIENT: MARILYN POWELL : 1935 MR#: [id number] ADMIT: 05/27/2017 JOB ID: [id number] DIS: PRIMARY DOCTOR: Doug Oh MD. REASON FOR ADMISSION: Pacemaker implant. CHIEF COMPLAINT: Palpitations and slow heart rates. HISTORY: The patient is a very pleasant 82-year-old woman with a structurally normal heart but frequent paroxysmal atrial fibrillation, for which she has undergone ablation previously. She continues to have episodes of atrial fibrillation, and sotalol has been increased to 120 mg b.i.d. This has helped reduce the feelings of atrial fibrillation but she still has quite a few episodes. She also has begun having periods of bradycardia with rates in the low 50s and high 40s, and she feels very fatigued with this. The patient is anticoagulated with warfarin. She was offered a pacemaker for treatment of bradycardia which would allow additional medical therapy to treat atrial fibrillation, and this was planned. COURSE IN HOSPITAL: The patient was admitted through the [facility] and taken to the catheterization laboratory, where she received a dual-chamber pacemaker without incident. She was taken back to the [facility] for recovery from sedation and then transferred up to the [facility] for overnight observation. In the morning she was having only moderate discomfort at the pacemaker site, and the incision was closed and dry. There was no hematoma. Chest x-ray showed good lead positions and no pneumothorax. Device evaluation showed excellent capture and sensing thresholds and episodic atrial fibrillation. She has no symptom complaints and feels well for discharge home. DISPOSITION: The patient was discharged home in good condition with a followup appointment at the [facility] Cardiology office in one week. She was instructed not to extend her left elbow high above her left shoulder for one month and not to lift, push, or pull more than 10 pounds with the left arm for one month. She will take medications as prescribed and follow her heart healthy diet. DISCHARGE MEDICATIONS: 1. Doxycycline 100 mg daily for 1 week. 2. Hydrocodone/acetaminophen 5/325 mg 1 tablet q.4 h. p.r.n. pain, #10 with no refills. 3. Amlodipine 5 mg q.a.m. 4. Vitamin D3, 2000 units daily. 5. Duloxetine 20 mg daily. 6. Furosemide 20 mg daily. 7. Gabapentin 100 mg q.h.s. 8. Krill oil 300 mg soft gel 1 daily. 9. Magnesium oxide 400 mg q.p.m. 10. Meloxicam 15 mg daily. 11. Metoprolol tartrate 25 mg daily. 12. Nitroglycerin 0.4 mg sublingual q.5 minutes p.r.n. chest pain. 13. Omeprazole 20 mg daily. 14. Potassium chloride ER 10 mEq daily. 15. Sotalol 120 mg b.i.d. 16. Nasacort 1 spray daily p.r.n. allergies. 17. Ocuvite soft gel 1 daily. 18. Warfarin 5 mg daily. 19. De Jesus brand Aller-Joanne 1 tablet daily. 20. Fiber powder 1 tablespoon daily. FINAL DIAGNOSES: 1. Paroxysmal, recurrent atrial fibrillation/atrial flutter. 2. Sinus bradycardia. 3. Hypertension.
--- NOTE | 2017-05-28 12:08 | NUR ---
discharge Pt stated pain controlled all shift from [place] this AM. Provided pt with booklet on having a pacemaker from [facility]. Pt had question re: nuwave/induction cooking. Spoke with PA who referred me to [employer] technical support hotline. Called and they stated no issues but recommended pt keep device at least 6inches away from cook surface. Pt informed and also info provided in d/c instructions. Pt had f/u apts made with VEENA Rosa, informed of her apts. Pt offered chance to ask questions which were answered. Aware of mobility and weight lifting restrictions following procedure. Notified of when to call MD if issues. Daughter present to take pt home. PIV removed prior to d/c intact. Pt took all belongings with her.
== END 2017-05-28 12:10 | disposition home or self-care (01) ==
LOC: SOUO 00:28 → MPC 15:47 → SOUO 05-28 12:10
PROVIDERS: ATTEND Internal Medicine Cardiovascular Disease
DX: I49.5 Sick sinus syndrome (principal); I48.0 Paroxysmal atrial fibrillation; Z79.01 Long term (current) use of anticoagulants; Z79.899 Other long term (current) drug therapy; Z98.890 Other specified postprocedural states; E03.9 Hypothyroidism, unspecified; I48.92 Unspecified atrial flutter; I34.0 Nonrheumatic mitral (valve) insufficiency; K21.9 Gastro-esophageal reflux disease without esophagitis; I11.9 Hypertensive heart disease without heart failure
CPT/HCPCS: 33208; 36415; 71010; 71020; 80048; 85025; 85610; 93005; 99152; 99153; C1769; C1785; C1892; C1898; J0131; J1644; J2250; J3010; J3370; J7050